=== PATIENT | female | born 1925 | race Hispanic/Latino ===

== ENCOUNTER 2017-03-17 12:33 | Emergency (ER) | payer MEDICARE ==
[2017-03-17 12:33] VITALS: BMI 30.2
[2017-03-17 12:47] VITALS: TEMP 98.2
--- NOTE | 2017-03-17 13:36 | ED PDOC ---
Arrival/HPI - General Chief Complaint: Trauma Time Seen by Provider: 03/17/17 13:08 Historian: Patient - History of Present Illness Narrative History of Present Illness (Text): 03/17/17 13:01 A 89 year old female, whose past medical history includes hypertension, presents to the emergency department complaining of right neck and back pain after a mechanical fall. Patient reports she was cleaning when she feel onto her right side. Patient sustained a small scrape to the right wrist and did hit her head but no headache or loss consciousness. Patient denies any focal weakness, chest pain, dizziness, hip pain, wrist pain, shoulder pain or any other complaints at this time. Patient took 2 Advil for the pain and states she is unsure when she last got her tetanus shot. PMD: Dr. Rivera Time/Duration: Prior to Arrival Symptom Onset: Sudden Symptom Course: Unchanged Quality: Other Activities at Onset: Rest Context: Home Past Medical History - Provider Review Nursing Documentation Reviewed: Yes - Infectious Disease Hx of Infectious Diseases: None - Tetanus Immunization Tetanus Immunization: Up to Date - Reproductive Menopause: Yes - Cardiac Hx Hypertension: Yes Hx Pacemaker: No - Pulmonary Hx Asthma: No Hx Chronic Obstructive Pulmonary Disease (COPD): No Hx Emphysema: No - Neurological Hx Dementia: No Hx Seizures: No - Renal Hx Renal Disorder: No - Hematological/Oncological Hx Cancer: No - Musculoskeletal/Rheumatological Hx Musculoskeletal Disorders: Yes - Gastrointestinal Hx Gastroesophageal Reflux: No - Psychiatric Hx Depression: No Hx Emotional Abuse: No Hx Physical Abuse: No Hx Substance Use: No - Surgical History Hx Hysterectomy: Yes Hx Orthopedic Surgery: Yes (BILATERAL KNEE SX, right wrist surgery) - Anesthesia Hx Anesthesia: Yes Hx Anesthesia Reactions: No Hx Malignant Hyperthermia: No - Suicidal Assessment Feels Threatened In Home Enviroment: No Family/Social History - Physician Review Nursing Documentation Reviewed: Yes Family/Social History: Unknown Family HX Smoking Status: Never Smoked Hx Alcohol Use: No Hx Substance Use: No Hx Substance Use Treatment: No Allergies/Home Meds Allergies/Adverse Reactions: Allergies Iodine and Iodide Containing Produc Allergy (Severe, Verified 03/17/17 12:48) ANAPHYLAXIS shrimp Allergy (Severe, Verified 03/17/17 12:48) ANAPHYLAXIS Home Medications: Home Meds Medication Instructions Recorded Confirmed Valsartan [Diovan] 0 mg PO DAILY 03/17/17 03/17/17 Review of Systems - Physician Review All systems were reviewed & negative as marked: Yes - Review of Systems Constitutional: absent: Other (head trauma) Respiratory: absent: SOB Cardiovascular: absent: Chest Pain, Syncope Musculoskeletal: Back Pain, Neck Pain, Other (shoulder pain, no wrist pain) Skin: Other (scrap to the right wrist) Neurological: absent: Dizziness, Focal Weakness Physical Exam Vital Signs Reviewed: Yes Vital Signs Temp Pulse Resp BP Pulse Ox 03/17/17 15:52 68 18 176/71 H 98 03/17/17 12:42 98.2 F 72 16 184/78 H 97 Temperature: Afebrile Blood Pressure: Hypertensive Pulse: Regular Respiratory Rate: Normal Appearance: Positive for: Well-Appearing, Non-Toxic, Comfortable Pain Distress: None Mental Status: Positive for: Alert and Oriented X 3 - Systems Exam Head: Present: Atraumatic, Normocephalic Pupils: Present: PERRL Conjunctiva: Present: Normal Mouth: Present: Moist Mucous Membranes Pharnyx: Present: Normal. No: ERYTHEMA, EXUDATE Neck: Present: Normal Range of Motion, Paraspinal Tenderness (right). No: MIDLINE TENDERNESS Respiratory/Chest: Present: Clear to Auscultation, Good Air Exchange, Tender to Palpation (to the upper posterior right ribs). No: Respiratory Distress, Accessory Muscle Use, Wheezes, Rales Cardiovascular: Present: Regular Rate and Rhythm, Normal S1, S2. No: Murmurs Abdomen: Present: Normal Bowel Sounds. No: Tenderness, Distention, Peritoneal Signs, Rebound, Guarding Back: Present: Other (tenderness to the right lateral hip but with full range of motion). No: Midline Tenderness Upper Extremity: Present: Normal ROM, Neurovascularly Intact. No: Cyanosis, Edema, Tenderness, Swelling, Erythema Lower Extremity: Present: Normal ROM, Swelling (right knee slight swollen compared to left knee but patient reports this is chronic). No: Edema, CALF TENDERNESS Neurological: Present: GCS=15, CN II-XII Intact, Speech Normal Skin: Present: Warm, Dry, Normal Color, Abrasion (to the distal shaft of the lateral right ulnar). No: Rashes Psychiatric: Present: Alert, Oriented x 3, Normal Insight, Normal Concentration Medical Decision Making ED Course and Treatment: 03/17/17 13:01 Impression: A 89 year old female presents after a mechanical fall. Differential Diagnosis include but are not limited to: fractures vs. dislocation vs. sprain Plan: -- Brain CT -- Cervical Spine CT -- Right Hip X-ray -- Right Ribs and PA Chest X-ray -- Right shoulder X-ray -- Reassess and disposition Prior Visits: Notes and results from previous visits were reviewed. The patient last presented to the emergency department on 11/28/15 for evaluation of back pain. Progress Notes: 03/17/17 13:[address]: Creator : Augie Martinez MD COMPARISON: 02/26/2017 FINDINGS: HEMORRHAGE: No intracranial hemorrhage. BRAIN: No mass effect or edema. Mild diffuse atrophy consistent with age. Mild periventricular white matter lucency consistent with microvascular ischemic change. VENTRICLES: Unremarkable. No hydrocephalus. CALVARIUM: Unremarkable. PARANASAL SINUSES: Unremarkable as visualized. No significant inflammatory changes. MASTOID AIR CELLS: Unremarkable as visualized. No inflammatory changes. OTHER FINDINGS: None. IMPRESSION: No intracranial hemorrhage. Age-appropriate involutional changes. 03/17/17 14:[address]: Creator : Augie Martinez MD COMPARISON: None available. FINDINGS: VERTEBRAE: Mild anterior wedge compression deformity of the C4 vertebra, age indeterminate. No paraspinous hemorrhage appreciated. Remaining vertebral bodies are maintained in height. There is erosive change at the posterior aspect of the C2 vertebra with mildly calcified pannus posterior to the dens. . DISCS/SPINAL CANAL/NEURAL FORAMINA: There is narrowing of the C3-4 through C7- T1 intervertebral disc spaces consistent with diffuse degenerative disc disease. Multilevel central and foraminal stenosis is noted. Central stenosis is most profound at the C4-5 disc space level. Discs heights are grossly preserved. PARASPINAL SOFT TISSUES: Unremarkable. OTHER FINDINGS: None. IMPRESSION: Mild anterior wedge compression deformity of the C4 vertebra, age indeterminate. Multilevel degenerative disc disease with osteophytes and central spinal and neural foraminal stenosis. Mildly calcified pannus posterior to the dens with erosive change of the posterior dense indicating possible inflammatory arthropathy. 03/17/17 15:25 Right Rib and PA Chest X-ray: Dictator : Augie Martinez MD COMPARISON: Chest radiograph 08/04/2016 FINDINGS: RIGHT RIBS: No fracture or focal lesion visualized. LUNGS: Clear. PLEURA: No pneumothorax or pleural fluid. CARDIOVASCULAR: Normal heart size. Tortuous thoracic aorta. OTHER FINDINGS: Bilateral glenohumeral osteoarthritis. IMPRESSION: No evidence of right rib fracture. No hemothorax/pneumothorax. 03/17/17 15:30 Right Hip X-ray: Creator : Augie Martinez MD COMPARISON: None. FINDINGS: BONES: No acute fracture. JOINTS: Mild osteoarthritis of both hips. Sacroiliac joints appear preserved. SOFT TISSUES: Normal. OTHER FINDINGS: None. IMPRESSION: No acute fracture. Right Shoulder X-ray: Creator : Augie Martinez MD COMPARISON: No prior. FINDINGS: BONES: No evidence of fracture. There is some erosive change at the insertion of the rotator cuff on the greater tuberosity. JOINTS: Glenohumeral osteoarthritis. Acromioclavicular degenerative arthritis. SOFT TISSUES: Normal. OTHER FINDINGS: None. IMPRESSION: No acute fracture. 03/17/17 15:54 Patient with noted history. CT scan of the c-spine with noted wedge compression deformity of indeterminate age. Spoke with radiologist. There is no assocaited hemorrhage or STS to suggest acute findings and patient has no midline tenderness on exam, so unlikely to be acute fx - will d/c, and she will f/u Dr. Rivera tomorrow. - RAD Interpretation Radiology Orders: 03/17/17 13:08 Brain [HEAD W/O CONTRAST] [CT] Stat CERVICAL SPINE W/O CONTRAST [CT] Stat SHOULDER RIGHT [RAD] Stat 03/17/17 13:09 HIP MIN 2V W/ PELVIS RT [RAD] Stat RIBS RIGHT & PA CHEST [RAD] Stat - Medication Orders Current Medication Orders: Discontinued Medications Tetanus/Reduced Diphtheria/Acell Pertussis (Boostrix Vaccine Inj) 0.5 ml IM .ONCE ONE Stop: 03/17/17 13:59 Last Admin: 03/17/17 15:22 Dose: 0.5 ml - Scribe Statement The provider has reviewed the documentation as recorded by the Scribe Ivette Capone Provider Scribe Attestation: All medical record entries made by the Scribe were at my direction and personally dictated by me. I have reviewed the chart and agree that the record accurately reflects my personal performance of the history, physical exam, medical decision making, and the department course for this patient. I have also personally directed, reviewed, and agree with the discharge instructions and disposition. Disposition/Present on Arrival - Present on Arrival Any Indicators Present on Arrival: No History of DVT/PE: No History of Uncontrolled Diabetes: No Urinary Catheter: No History of Decub. Ulcer: No History Surgical Site Infection Following: Abdominal Surgery - Disposition Have Diagnosis and Disposition been Completed?: Yes Diagnosis: Musculoskeletal pain, Neck strain, Arm abrasion, Compression deformity of vertebra Disposition: HOME/ ROUTINE Disposition Time: 16:05 Patient Plan: Discharge Patient Problems: Current Active Problems Problem Status Onset Arm abrasion Acute Musculoskeletal pain Acute Neck strain Acute Condition: GOOD Additional Instructions: You may continue tylenol or advil as before. Tramadol has been prescribed if you develop severe uncontrolled pain. Follow up with Dr. Rivera. Return to the emergency department if any new concerning symptoms. Prescriptions: Tramadol HCl/Acetaminophen [Ultracet Tablet] 1 tab PO Q8H PRN #20 tablet PRN Reason: Pain, Severe (8-10) Referrals: Eddie Rivera MD [Primary Care Provider] - Follow up with primary
--- NOTE | 2017-03-17 13:48 | CT ---
PROCEDURE: CT HEAD WITHOUT CONTRAST. HISTORY: fell and hit head and neck COMPARISON: 02/26/2017 TECHNIQUE: Axial computed tomography images were obtained through the head/brain without intravenous contrast. Radiation dose: Total exam DLP = 700.55 mGy-cm. This CT exam was performed using one or more of the following dose reduction techniques: Automated exposure control, adjustment of the mA and/or kV according to patient size, and/or use of iterative reconstruction technique. FINDINGS: HEMORRHAGE: No intracranial hemorrhage. BRAIN: No mass effect or edema. Mild diffuse atrophy consistent with age. Mild periventricular white matter lucency consistent with microvascular ischemic change. VENTRICLES: Unremarkable. No hydrocephalus. CALVARIUM: Unremarkable. PARANASAL SINUSES: Unremarkable as visualized. No significant inflammatory changes. MASTOID AIR CELLS: Unremarkable as visualized. No inflammatory changes. OTHER FINDINGS: None. IMPRESSION: No intracranial hemorrhage. Age-appropriate involutional changes.
[2017-03-17] MEDS ORDERED: TDAP Vaccine 0.5 mL Syr IM ONE (13:58)
--- NOTE | 2017-03-17 14:18 | CT ---
PROCEDURE: CT Cervical Spine without contrast HISTORY: Status post fall COMPARISON: None available. TECHNIQUE: Axial computed tomography images were obtained of the cervical spine without the use of intravenous contrast. Coronal and sagittal reformatted images were created and reviewed. Radiation dose: Total exam DLP = 692.33 mGy-cm. This CT exam was performed using one or more of the following dose reduction techniques: Automated exposure control, adjustment of the mA and/or kV according to patient size, and/or use of iterative reconstruction technique. FINDINGS: VERTEBRAE: Mild anterior wedge compression deformity of the C4 vertebra, age indeterminate. No paraspinous hemorrhage appreciated. Remaining vertebral bodies are maintained in height. There is erosive change at the posterior aspect of the C2 vertebra with mildly calcified pannus posterior to the dens. . DISCS/SPINAL CANAL/NEURAL FORAMINA: There is narrowing of the C3-4 through C7-T1 intervertebral disc spaces consistent with diffuse degenerative disc disease. Multilevel central and foraminal stenosis is noted. Central stenosis is most profound at the C4-5 disc space level. Discs heights are grossly preserved. PARASPINAL SOFT TISSUES: Unremarkable. OTHER FINDINGS: None. IMPRESSION: Mild anterior wedge compression deformity of the C4 vertebra, age indeterminate. Multilevel degenerative disc disease with osteophytes and central spinal and neural foraminal stenosis. Mildly calcified pannus posterior to the dens with erosive change of the posterior dense indicating possible inflammatory arthropathy.
--- NOTE | 2017-03-17 15:25 | RAD ---
PROCEDURE: Radiographs of the Chest and Right Ribs. HISTORY: posterior upper R rib pain s/p fall COMPARISON: Chest radiograph 08/04/2016 TECHNIQUE: Frontal radiograph of the chest and multiple oblique radiographs of the right ribs were obtained. FINDINGS: RIGHT RIBS: No fracture or focal lesion visualized. LUNGS: Clear. PLEURA: No pneumothorax or pleural fluid. CARDIOVASCULAR: Normal heart size. Tortuous thoracic aorta. OTHER FINDINGS: Bilateral glenohumeral osteoarthritis. IMPRESSION: No evidence of right rib fracture. No hemothorax/pneumothorax.
--- NOTE | 2017-03-17 15:28 | RAD ---
PROCEDURE: Radiographs of the Right Shoulder HISTORY: fell onto R side - R shoulder pain COMPARISON: No prior. FINDINGS: BONES: No evidence of fracture. There is some erosive change at the insertion of the rotator cuff on the greater tuberosity. JOINTS: Glenohumeral osteoarthritis. Acromioclavicular degenerative arthritis. SOFT TISSUES: Normal. OTHER FINDINGS: None. IMPRESSION: No acute fracture.
--- NOTE | 2017-03-17 15:30 | RAD ---
PROCEDURE: Right Hip Radiographs. HISTORY: R hip pain s/p fall COMPARISON: None. FINDINGS: BONES: No acute fracture. JOINTS: Mild osteoarthritis of both hips. Sacroiliac joints appear preserved. SOFT TISSUES: Normal. OTHER FINDINGS: None. IMPRESSION: No acute fracture.
[2017-03-17 15:53] VITALS: BP 176/71; PULSE 68; RESP 18; O2SAT 98
== END 2017-03-17 16:17 | disposition home or self-care (01) ==
LOC: ED 12:33
DX: S16.1XXA Strain of muscle, fascia and tendon at neck level, initial encounter (principal); S60.811A Abrasion of right wrist, initial encounter; W01.0XXA Fall on same level from slipping, tripping and stumbling without subsequent striking against object, initial encounter; Y93.E9 Activity, other interior property and clothing maintenance; Y92.009 Unspecified place in unspecified non-institutional (private) residence as the place of occurrence of the external cause; M43.8X2 Other specified deforming dorsopathies, cervical region; Z23 Encounter for immunization